=== PATIENT | female | born 1995 | race African-American/Black ===

== ENCOUNTER 2020-11-03 11:52 | Emergency (ER) | payer MEDICAID ==
[~2020-11-03] VITALS: Ht 157.5 cm; Wt 75.0 kg
[2020-11-03 11:55] VITALS: BP 128/78
[2020-11-03] MEDS ORDERED: ACET-2708 MT (12:24)
[2020-11-03] MEDS ORDERED: ACETAMINOPHEN 325MG TABLET PO ONE (12:30)
== END 2020-11-03 12:52 | disposition home or self-care (01) ==
LOC: ER 11:52
DX: M79.18 Myalgia, other site (principal); R51.9 Headache, unspecified; R53.83 Other fatigue; T50.B95A Adverse effect of other viral vaccines, initial encounter; Y92.89 Other specified places as the place of occurrence of the external cause; G40.909 Epilepsy, unspecified, not intractable, without status epilepticus
CPT/HCPCS: 99282